=== PATIENT | female | born 1995 | race Two or more races ===

== ENCOUNTER 2016-12-05 09:59 | Emergency (ER) | payer MEDICAID ==
[~2016-12-05] VITALS: Ht 165.1 cm; Wt 77.1 kg
[2016-12-05 10:27] VITALS: BP 101/62
== END 2016-12-05 10:32 | disposition home or self-care (01) ==
LOC: ER 09:59
DX: L02.31 Cutaneous abscess of buttock (principal)

== ENCOUNTER 2016-12-11 10:52 | Emergency (ER) | payer MEDICAID ==
[~2016-12-11] VITALS: Ht 165.1 cm; Wt 77.1 kg
[2016-12-11 12:00] VITALS: BP 102/63
== END 2016-12-11 12:23 | disposition home or self-care (01) ==
LOC: ER 10:55
DX: O26.891 Other specified pregnancy related conditions, first trimester (principal); Z48.817 Encounter for surgical aftercare following surgery on the skin and subcutaneous tissue; Z3A.01 Less than 8 weeks gestation of pregnancy

== ENCOUNTER 2020-03-14 17:26 | Emergency (ER) | payer MEDICAID ==
[~2020-03-14] VITALS: Ht 165.1 cm; Wt 81.6 kg
[2020-03-14] MEDS ORDERED: ACETAMINOPHEN 325 MG TAB PO ONE (21:45)
[2020-03-14 21:53] VITALS: BP 155/65
== END 2020-03-14 22:47 | disposition home or self-care (01) ==
LOC: ER 17:28
DX: G43.909 Migraine, unspecified, not intractable, without status migrainosus (principal)
CPT/HCPCS: 70450; 81025